=== PATIENT | male | born 1940 | race Caucasian/White ===

== ENCOUNTER 2017-05-09 19:41 | Inpatient (IN) | payer MEDICARE ==
[~2017-05-09] VITALS: Ht 185.4 cm; Wt 58.5 kg
[~2017-05-09 19:41] MED LIST: ASPIRIN81 MG PO; IBUPROFEN600 MG PO; MINOCYCLINE HC100 M1 PO; PLAQUENIL200 MG PO; RAMIPRIL10 MG PO
[2017-05-09] MEDS ORDERED: ASPIRIN 81 MG CHEW TAB PO STA (20:14)
[2017-05-09] MEDS ORDERED: NITROGLYCERIN 2% OINT 1 GM PKT TOP STA (20:14)
[2017-05-09] MEDS ORDERED: ASPIRIN 81 MG CHEW TAB PO ONE (20:15)
[2017-05-09] MEDS ORDERED: ASPIRIN81 MG PO (20:18)
[2017-05-09] MEDS ORDERED: BYSTOLIC5 MG PO (20:18)
[2017-05-09 20:27] LABS: BASOPHILS # (AUTO) 0.1 (0.0-0.1); BASOPHILS % 0.5 % (0.0-1.0); EOSINOPHILS # (AUTO) 0.2 (0.0-0.4); EOSINOPHILS % 2.2 % (0.0-6.0); HEMATOCRIT 33.4 % (38.2-49.6); HEMOGLOBIN 10.7 g/dL (14.0-18.0); LYMPHOCYTES # (AUTO) 1.5 (1.0-3.2); LYMPHOCYTES % 16.8 % (18.0-39.1); MEAN CORPUSCULAR HEMOGLOBIN 28.4 pg (28-32); MEAN CORPUSCULAR VOLUME 88.6 fL (81-99); MONOCYTES # (AUTO) 0.7 (0.2-0.8); MONOCYTES % 7.2 % (4.4-11.3); NEUTROPHILS # (AUTO) 6.6 (2.1-6.9); NEUTROPHILS % 72.9 % (38.7-80.0); PLATELET COUNT 254 x10e3/uL (140-360); RED BLOOD COUNT 3.77 x10e6/uL (4.3-5.7)
[2017-05-09 20:33] LABS: BILIRUBIN,URINE 1+ (NEGATIVE); CLARITY,URINE SL CLOUDY (CLEAR); COLOR,URINE YELLOW (YELLOW); KETONES,URINE NEGATIVE (NEGATIVE); LEUKOCYTE ESTERASE ,URINE NEGATIVE (NEGATIVE); NITRITE,URINE NEGATIVE (NEGATIVE); PROTEIN,URINE DIPSTICK TRACE (NEGATIVE); URINE UROBILINOGEN 0.2 mg/dL (0.2 - 1)
[2017-05-09 20:36] LABS: INR 1.29; PROTHROMBIN TIME 15.1 seconds (11.9-14.5)
[2017-05-09 20:37] LABS: PARTIAL THROMBOPLASTIN TIME 34.6 seconds (23.8-35.5)
[2017-05-09 20:43] LABS: ALBUMIN 3.7 g/dL (3.5-5.0); ALBUMIN/GLOBULIN RATIO 0.8 (0.8-2.0); ANION GAP 15.3 mmol/L (8-16); CALCIUM 9.3 mg/dL (8.4-10.2); CREATININE, SERUM 1.4 mg/dL (0.72-1.25); POTASSIUM 5.3 mmol/L (3.5-5.1)
[2017-05-09 20:46] LABS: BACTERIA,URINE FEW /HPF; EPITHELIAL CELLS,URINE RARE /LPF; MUCUS,URINE FEW (RARE)
[2017-05-09 20:50] LABS: CREATINE KINASE MB 2.8 ng/mL (0.00-5.00)
[2017-05-09] MEDS ORDERED: SODIUM CHLORIDE FLUSH 10 ML SYR INJ PRN (21:45)
--- NOTE | 2017-05-09 22:14 | Diagnostic Imaging Report ---
CHEST SINGLE (PORTABLE), 05/09/2017 8:14 PM Technique: CHEST SINGLE (PORTABLE) Comparison: None available. Clinical history: Chest pain Findings: See Impression Impression: 1. Mildly enlarged cardiac silhouette status post sternotomy. No edema. 2. Small right pleural effusion with associated atelectasis. Underlying infection not excluded in the proper clinical context. Consider follow-up upright PA and lateral. 3. Left costophrenic angle is excluded from view. Signed by: Dr Pema Castaneda MD on 05/09/2017 10:11 PM
--- OUTSIDE RECORDS SUMMARY | 2017-05-09 22:56 | XMS REPORT ---
Author [facility] Address Unknown Phone Unavailable Care Team Providers Care Quality Engineering Manager Name Role Phone FANI RAMSEY Unavailable Unavailable Problems This patient has no known problems. Allergies, Adverse Reactions, Alerts This patient has no known allergies or adverse reactions. Medications This patient has no known medications. Results Test Description Test Time Test Comments Text Results Atomic Results Result Comments CHEST SINGLE (PORTABLE) [place] [address] Patient Name: HUSAM MORENO JR MR #: [id number] : 1940 Age/Sex: 76/M Req #: [id number] Adm Physician: Ordered by: FANI RAMSEY MD Report #: [id number] Location: ER Room/Bed: Procedure: [id number] DX/CHEST SINGLE (PORTABLE) Exam Date: Exam Time: REPORT STATUS: Signed CHEST SINGLE (PORTABLE), 02/2018 8:14 PM Technique: CHEST SINGLE (PORTABLE) Comparison: None available. Clinical history: Chest pain Findings: See Impression Impression: 1. Mildly enlarged cardiac silhouette status post sternotomy. No edema. 2. Small right pleural effusion with associated atelectasis. Underlying infection not excluded in the proper clinical context. Consider follow-up upright PA and lateral. 3. Left costophrenic angle is excluded from view. Signed by: Dr Halina Castaneda MD on 05/09/2017 10:11 PM Dictated By: HALINA CASTANEDA MD 10 Transcribed By: KENAN on 05/09/172210 COPY TO: FANI RAMSEY MD
[2017-05-10] VITALS (8 sets, daily range): BP systolic 84–138; BP diastolic 54–68
[2017-05-10 07:26] LABS: CHOL/HDL RATIO 3.3 (3.9-4.7)
[2017-05-10 07:33] LABS: CREATINE KINASE MB 2.4 ng/mL (0.00-5.00)
[2017-05-10] MEDS: ENOXAPARIN SOD INJ 60 MG/0.6 ML SYR SC SCH (08:30)
[2017-05-10] MEDS ORDERED: FUROSEMIDE INJ 10 MG/ML 4 ML VIAL IV SCH (09:00)
[2017-05-10] MEDS ORDERED: ASPIRIN 325 MG TAB EC PO SCH (09:00)
[2017-05-10] MEDS ORDERED: ENOXAPARIN SODIUM INJ 100 MG/ML SYR SC SCH (09:00)
[2017-05-10 09:40] LABS: BASOPHILS # (AUTO) 0.1 (0.0-0.1); BASOPHILS % 0.8 % (0.0-1.0); EOSINOPHILS # (AUTO) 0.1 (0.0-0.4); EOSINOPHILS % 1.6 % (0.0-6.0); HEMATOCRIT 29.3 % (38.2-49.6); HEMOGLOBIN 9.3 g/dL (14.0-18.0); LYMPHOCYTES # (AUTO) 1.3 (1.0-3.2); LYMPHOCYTES % 20.5 % (18.0-39.1); MEAN CORPUSCULAR HGB CONC 31.7 g/dL (31-35); MEAN CORPUSCULAR VOLUME 88.3 fL (81-99); MONOCYTES # (AUTO) 0.5 (0.2-0.8); MONOCYTES % 8.3 % (4.4-11.3); NEUTROPHILS # (AUTO) 4.4 (2.1-6.9); NEUTROPHILS % 68.5 % (38.7-80.0); PLATELET COUNT 214 x10e3/uL (140-360); RED BLOOD COUNT 3.32 x10e6/uL (4.3-5.7); RED CELL DISTRIBUTION WIDTH 14.8 % (11.7-14.4)
[2017-05-10 09:47] LABS: ANION GAP 16.2 mmol/L (8-16); CALCIUM 8.5 mg/dL (8.4-10.2); CREATININE, SERUM 1.34 mg/dL (0.72-1.25); MAGNESIUM 1.6 MG/DL (1.3-2.1)
[2017-05-10 09:53] LABS: POTASSIUM 4.2 mmol/L (3.5-5.1)
--- NOTE | 2017-05-10 10:10 | History and Physical ---
PRIMARY CARE PHYSICIAN: Dr. Deonte Wright CHIEF COMPLAINT: Shortness of breath. HISTORY OF PRESENT ILLNESS: This is a 76-year-old man with a history of coronary artery disease with a history of coronary artery bypass graft, now developing shortness of breath. The patient continues to smoke 1-1/2 packs of cigarettes per day. The patient presented to the emergency room. Chest x-ray done in the emergency room showed small right pleural effusion with some atelectasis. The patient was also found to be hypokalemic. Potassium was 5.3. BNP was 2617. The patient was admitted for further evaluation and management. PAST MEDICAL HISTORY: Coronary artery disease, status post coronary artery bypass graft in 2007, peripheral vascular disease, status post right BKA in 2013, cigarette abuse. PAST SURGICAL HISTORY: Right below knee amputation and coronary artery bypass grafting. ALLERGIES: PER ELECTRONIC MEDICAL RECORDS. FAMILY HISTORY/SOCIAL HISTORY: The patient is and has 2 children. No alcohol or illicits. Continues to smoke 1-1/2 packs of cigarettes per day. MEDICATIONS: Per electronic medical record. REVIEW OF SYSTEMS: Denies any dizziness or chest pain. PHYSICAL EXAMINATION VITAL SIGNS: Reviewed. GENERAL: A tired-appearing man resting in bed, sitting at the edge of the bed leaning forward. HEENT: Anicteric. CARDIOVASCULAR: Normal S1 and S2. LUNGS: Reduced breath sounds more at the base. He has fine crackles at the bases bilaterally. ABDOMEN: Soft, nontender and nondistended. EXTREMITIES: No edema. He has a right BKA stump that is well-healed. SKIN: Dry. PSYCHIATRIC: Normal affect. LABS: Reviewed. MEDICATIONS: Reviewed. ASSESSMENT AND PLAN: A 76-year-old man with: 1. Right pleural effusion: The patient's BNP is markedly elevated above 2000. Will diurese the patient with Lasix 40 mg intravenously daily. Follow I's and O's. 2. Cigarette abuse: Confirm suspicion. Not interested in patch. Definitely contributing to his symptoms at this time. The patient states that he does not have a history of chronic obstructive pulmonary disease. 3. Coronary artery disease with history of coronary artery bypass grafting: Will resume aspirin, beta sj and GUILLERMINA inhibitor. 4. Normocytic anemia, mild to moderate: Will follow. 5. Hyperkalemia: Potassium was 5.3. Will hold GUILLERMINA inhibitor. Will reassess potassium level now. 6. Acute kidney injury: Will hold GUILLERMINA inhibitor and reassess renal function this morning. May need renal ultrasound. 7. Prophylaxis: Will use prophylaxis Pepcid while on Lovenox treatment dose. 8. Disposition: Obtain a 2-D echocardiogram. Cardiology consultation. Diurese the patient. Monitor I's and O's. Monitor renal function and check labs now. Job#: [id number] ARTHUR
--- NOTE | 2017-05-10 14:09 | Consultation ---
DATE OF CONSULTATION: May 10, 2017 CARDIOLOGY CONSULTATION REQUESTING PHYSICIAN: Dr. Jose Rodriges. REASON FOR CONSULTATION: Congestive heart failure. HISTORY OF PRESENT ILLNESS: This is a 76-year-old man with coronary artery disease status post 3-vessel bypass in 2007, hypertension, peripheral arterial disease and chronic kidney disease, who presented with complaints of shortness of breath. The patient reports he has noted increasing shortness of breath with ambulation for the last 3 to 4 weeks. In addition, 2 weeks ago he noticed he began to have worsening shortness of breath when he lay down at night such that he now is using 2 pillows to sleep and has woken up having to sit up because of shortness of breath. He denied any edema, chest pain or palpitations. Due to these symptoms, he presented to the ER for further evaluation, where he was found to have a small right pleural effusion and elevated BNP at 2600. He was admitted for further management. REVIEW OF SYSTEMS: Negative except as per HPI. PAST MEDICAL HISTORY 1. Coronary artery disease status post 3-vessel CABG in 2007. 2. Peripheral vascular disease status post right BKA. 3. Hypertension. 4. Chronic kidney disease. PAST SURGICAL HISTORY 1. CABG. 2. Right BKA. ALLERGIES: NO KNOWN DRUG ALLERGIES. MEDICATIONS: Please see EMR. SOCIAL HISTORY: He smokes a pack and a half a day for the last 50 years. He denies any alcohol or drugs. FAMILY HISTORY: Noncontributory. PHYSICAL EXAMINATION VITAL SIGNS: Temperature 97.2 degrees, pulse 58, respiratory rate 18, blood pressure 133/62, oxygen saturation 100% on 3 liters nasal cannula. GENERAL: A thin man, well developed, no acute distress. HEENT: Normocephalic, atraumatic. Pupils equal, no scleral icterus. NECK: Supple. No thyromegaly or cervical lymphadenopathy, no carotid bruits. LUNGS: Clear to auscultation bilaterally. No wheezes or crackles. CARDIOVASCULAR: Normal rate, regular rhythm. No murmur. Normal S1 and S2. ABDOMEN: Soft, nontender. EXTREMITIES: Status post right BKA, 2+ pitting edema on the left. NEURO: Nonfocal exam. CARDIAC MEDICATIONS 1. Enoxaparin 60 mg subcutaneous daily. 2. Furosemide 40 mg IV daily. 3. Aspirin 81 mg p.o. daily. 4. Nebivolol 5 mg p.o. daily. LABS: Sodium 137, potassium 4.2, chloride 106, CO2 19, BUN 37, creatinine 1.34. Troponin 0.009. BNP 2618. Cholesterol 107, LDL 65, HDL 32, triglycerides 51. EKG: Sinus rhythm with occasional PVCs and PACs, right-whitlock axis, incomplete right bundle branch block. Cannot rule out anterior infarct, age undetermined. IMPRESSION 1. Enaux-xe-edezeqn systolic heart failure, coronary artery disease status post coronary artery bypass graft. 1. Peripheral vascular disease status post right below-knee amputation. 2. Tobacco abuse. 3. Hypertension. 4. Chronic kidney disease. RECOMMENDATIONS: Increase diuresis. Echo was being done at bedside. Will review the images once they are available. Patient will need ischemic evaluation once he is able to lie flat. We will need to change Nebivolol to carvedilol given his systolic heart failure. No GUILLERMINA or ARB at this time due to renal insufficiency. Will reassess if renal function remains stable. Thank you for this consult. We will continue to follow. Job#: [id number] LI
[2017-05-10 15:13] LABS: CREATINE KINASE MB 2.5 ng/mL (0.00-5.00)
[2017-05-10] MEDS: FUROSEMIDE INJ 10 MG/ML 4 ML VIAL IV SCH ×2 (17:40→21:29)
[2017-05-11] VITALS: BP 137/63
[2017-05-11 07:44] LABS: BASOPHILS % 0.5 % (0.0-1.0); EOSINOPHILS # (AUTO) 0.2 (0.0-0.4); EOSINOPHILS % 2.1 % (0.0-6.0); HEMATOCRIT 32.8 % (38.2-49.6); HEMOGLOBIN 10.5 g/dL (14.0-18.0); LYMPHOCYTES % 11.4 % (18.0-39.1); MEAN CORPUSCULAR VOLUME 87.5 fL (81-99); MONOCYTES # (AUTO) 0.7 (0.2-0.8); MONOCYTES % 7.6 % (4.4-11.3); NEUTROPHILS # (AUTO) 6.8 (2.1-6.9); NEUTROPHILS % 78.1 % (38.7-80.0); PLATELET COUNT 229 x10e3/uL (140-360); RED BLOOD COUNT 3.75 x10e6/uL (4.3-5.7); RED CELL DISTRIBUTION WIDTH 14.8 % (11.7-14.4)
[2017-05-11 08:08] LABS: ANION GAP 15.8 mmol/L (8-16); CALCIUM 8.6 mg/dL (8.4-10.2); CREATININE, SERUM 1.55 mg/dL (0.72-1.25); MAGNESIUM 1.7 MG/DL (1.3-2.1); POTASSIUM 3.8 mmol/L (3.5-5.1)
[2017-05-11 08:47] VITALS: BP 164/69
[2017-05-11] MEDS ORDERED: NEBIVOLOL 10 MG TAB PO SCH (09:00)
[2017-05-11] MEDS: FUROSEMIDE INJ 10 MG/ML 4 ML VIAL IV SCH ×3 (09:05→20:39)
[2017-05-11] MEDS: ASPIRIN 81 MG CHEW TAB PO SCH (09:05)
[2017-05-11] MEDS: ENOXAPARIN SOD INJ 60 MG/0.6 ML SYR SC SCH (09:05)
[2017-05-11 09:31] VITALS: BP 164/69
[2017-05-11 12:33] VITALS: BP 132/71
[2017-05-11 16:29] VITALS: BP 142/72
[2017-05-11 20:00] VITALS: BP 134/64
[2017-05-11] MEDS: HYDROXYCHLOROQUINE SULFATE PO SCH (20:39)
[2017-05-12] VITALS (8 sets, daily range): BP systolic 116–134; BP diastolic 58–65
[2017-05-12 07:00] LABS: BASOPHILS % 0.4 % (0.0-1.0); EOSINOPHILS # (AUTO) 0.1 (0.0-0.4); EOSINOPHILS % 1.1 % (0.0-6.0); HEMATOCRIT 34.2 % (38.2-49.6); LYMPHOCYTES # (AUTO) 0.9 (1.0-3.2); LYMPHOCYTES % 7.8 % (18.0-39.1); MEAN CORPUSCULAR HEMOGLOBIN 27.9 pg (28-32); MEAN CORPUSCULAR HGB CONC 32.2 g/dL (31-35); MEAN CORPUSCULAR VOLUME 86.8 fL (81-99); MONOCYTES # (AUTO) 0.9 (0.2-0.8); MONOCYTES % 8.3 % (4.4-11.3); NEUTROPHILS # (AUTO) 9.3 (2.1-6.9); PLATELET COUNT 242 x10e3/uL (140-360); RED BLOOD COUNT 3.94 x10e6/uL (4.3-5.7); RED CELL DISTRIBUTION WIDTH 14.5 % (11.7-14.4)
[2017-05-12 07:26] LABS: CALCIUM 8.9 mg/dL (8.4-10.2); CREATININE, SERUM 1.41 mg/dL (0.72-1.25); MAGNESIUM 1.9 MG/DL (1.3-2.1)
[2017-05-12 07:45] LABS: FERRITIN 48.78 ng/mL (21.81-274.66)
[2017-05-12 07:56] LABS: FOLATE 14.4 ng/mL (7.0-15.4)
[2017-05-12] MEDS: POTASSIUM CHLORIDE 20 MEQ TAB CR PO SCH (08:38)
[2017-05-12] MEDS: FUROSEMIDE INJ 10 MG/ML 4 ML VIAL IV SCH ×3 (08:38→21:01)
[2017-05-12] MEDS: ENOXAPARIN SOD INJ 60 MG/0.6 ML SYR SC SCH (08:45)
[2017-05-12] MEDS: ASPIRIN 81 MG CHEW TAB PO SCH (08:45)
[2017-05-12] MEDS ORDERED: POTASSIUM CHLORIDE 20 MEQ TAB CR PO SCH (09:00)
[2017-05-12] MEDS ORDERED: LIDOCAINE HCL 2% LOCAL 20 ML VIAL PRN (11:42)
[2017-05-12] MEDS ORDERED: HEPARIN SOD/SOD CHLORIDE 2,000 ML PRN (11:42)
[2017-05-12] MEDS ORDERED: IOPAMIDOL 370 MG/ML 200 ML INFUS..BTL INJ PRN (11:43)
[2017-05-12] MEDS ORDERED: SODIUM CHLORIDE 0.9% 1000ML 1,000 ML PRN (11:59)
[2017-05-12] MEDS ORDERED: MIDAZOLAM HCL 2 MG/2 ML VIAL PRN (11:59)
[2017-05-12] MEDS ORDERED: FENTANYL CITRATE/PF 100MCG/2 ML INJ PRN (11:59)
[2017-05-12] MEDS: HYDROXYCHLOROQUINE SULFATE PO SCH (21:01)
[2017-05-13] VITALS (9 sets, daily range): BP systolic 12–144; BP diastolic 59–67
[2017-05-13 07:18] LABS: BASOPHILS % 0.4 % (0.0-1.0); EOSINOPHILS # (AUTO) 0.1 (0.0-0.4); EOSINOPHILS % 1.1 % (0.0-6.0); HEMOGLOBIN 11.7 g/dL (14.0-18.0); LYMPHOCYTES # (AUTO) 0.9 (1.0-3.2); LYMPHOCYTES % 8.6 % (18.0-39.1); MEAN CORPUSCULAR HEMOGLOBIN 27.7 pg (28-32); MEAN CORPUSCULAR HGB CONC 31.6 g/dL (31-35); MEAN CORPUSCULAR VOLUME 87.5 fL (81-99); MONOCYTES % 8.7 % (4.4-11.3); NEUTROPHILS # (AUTO) 8.8 (2.1-6.9); PLATELET COUNT 265 x10e3/uL (140-360); RED BLOOD COUNT 4.23 x10e6/uL (4.3-5.7); RED CELL DISTRIBUTION WIDTH 14.7 % (11.7-14.4)
[2017-05-13 07:34] LABS: CALCIUM 9.2 mg/dL (8.4-10.2); CREATININE, SERUM 1.55 mg/dL (0.72-1.25); MAGNESIUM 2.2 MG/DL (1.3-2.1)
[2017-05-13] MEDS ORDERED: SODIUM CHLORIDE 0.9% 1000ML 1,000 ML IV SCH (08:00)
[2017-05-13] MEDS: ASPIRIN 81 MG CHEW TAB PO SCH (09:00)
[2017-05-13] MEDS ORDERED: VANCOMYCIN 1GM/NS 250 ML 250 ML IV PRN (09:00)
[2017-05-13] MEDS: ENOXAPARIN SOD INJ 60 MG/0.6 ML SYR SC SCH (11:00)
[2017-05-13] MEDS: POTASSIUM CHLORIDE 20 MEQ TAB CR PO SCH (11:00)
[2017-05-13] MEDS: FUROSEMIDE INJ 10 MG/ML 4 ML VIAL IV SCH ×3 (11:00→21:15)
--- NOTE | 2017-05-13 14:05 | Progress Note ---
DATE: May 13, 2017 CARDIOLOGY PROGRESS NOTE SUBJECTIVE: Patient denies chest pain or shortness of breath. He is waiting for ICD. OBJECTIVE VITAL SIGNS: Temperature 97.3 degrees, pulse 60, respiratory rate 17, blood pressure 143/67, oxygen saturation 100% on 2 liters nasal cannula. GENERAL: Awake, alert, cachectic. No acute distress. HEENT: Normocephalic, atraumatic. LUNGS: Clear to auscultation bilaterally. No wheezes or crackles. CARDIOVASCULAR: Normal rate, regular rhythm. No murmur. Normal S1 and S2. ABDOMEN: Soft, nontender. EXTREMITIES: Status post right BKA. No edema on the left. CARDIAC MEDICATIONS 1. Furosemide 40 mg IV t.i.d. 2. Enoxaparin 60 mg subcutaneous daily. 3. Aspirin 81 mg p.o. daily. LABS: WBC is 10.89, hemoglobin 11.7, hematocrit 37, platelets 265. Sodium 137, potassium 4, chloride 99, CO2 27, BUN 48, creatinine 1.55. BNP 1059. IMPRESSION 1. Ztiek-cg-truwpox systolic heart failure. 2. Coronary artery disease status post coronary artery bypass graft with 100% chronic total occlusion of the left anterior descending and right coronary artery, patent left internal mammary artery to left anterior descending, patent saphenous vein graft to diagonal 1, and patent saphenous vein graft to right coronary artery with 80% heavily calcified left main and left circumflex. 3. Peripheral vascular disease status post right below-knee amputation. 4. Tobacco abuse. 5. Hypertension. 6. Chronic kidney disease. RECOMMENDATIONS: Continue diuresis. Patient is scheduled for ICD this afternoon with Dr. Lennon. Continue current cardiac medications. Thank you for this consult. We will continue to follow. Job#: [id number] EV
[2017-05-13] MEDS ORDERED: BACITRACIN 50,000 UNIT VIAL PRN (16:40)
[2017-05-13] MEDS ORDERED: VANCOMYCIN 1GM/NS 250 ML 250 ML PRN (17:02)
[2017-05-13] MEDS ORDERED: MORPHINE SULFATE 2 MG/ML SYR IV PRN (19:45)
[2017-05-13] MEDS: MINOCYCLINE HCL 50 MG CAP PO SCH (21:15)
[2017-05-13] MEDS: HYDROXYCHLOROQUINE SULFATE PO SCH (21:15)
[2017-05-14] VITALS (8 sets, daily range): BP systolic 139–159; BP diastolic 63–88
[2017-05-14] MEDS: MORPHINE SULFATE INJ 4 MG/ML INJ IV PRN ×2 (03:01→06:22)
[2017-05-14] MEDS ORDERED: MORPHINE SULFATE 2 MG/ML SYR ONE (06:16)
--- NOTE | 2017-05-14 06:47 | Diagnostic Imaging Report ---
CHEST SINGLE (PORTABLE), 05/14/2017 6:00 AM Technique: CHEST SINGLE (PORTABLE) Comparison: 05.09.17 Clinical history: \S\aicd placement portable upright \[id number] \S\0600 \S\Y Findings: See Impression Impression: 1. Lines/Tubes: Placement of dual-lead left chest wall AICD with leads projecting over the right atrium and ventricle. Median sternotomy wires intact. 2. Stable mild cardiomegaly. 3. Hyperinflation without consolidation or edema. Decreased small right effusion. 4. No pneumothorax. Signed by: Dr Pema Castaneda MD on 05/14/2017 6:43 AM
[2017-05-14 07:19] LABS: BASOPHILS # (AUTO) 0.1 (0.0-0.1); BASOPHILS % 0.4 % (0.0-1.0); EOSINOPHILS # (AUTO) 0.3 (0.0-0.4); EOSINOPHILS % 1.8 % (0.0-6.0); HEMOGLOBIN 11.4 g/dL (14.0-18.0); LYMPHOCYTES # (AUTO) 0.9 (1.0-3.2); LYMPHOCYTES % 6.4 % (18.0-39.1); MEAN CORPUSCULAR HEMOGLOBIN 27.7 pg (28-32); MEAN CORPUSCULAR HGB CONC 32.6 g/dL (31-35); MONOCYTES # (AUTO) 1.1 (0.2-0.8); MONOCYTES % 8.1 % (4.4-11.3); NEUTROPHILS # (AUTO) 11.5 (2.1-6.9); PLATELET COUNT 235 x10e3/uL (140-360); RED BLOOD COUNT 4.12 x10e6/uL (4.3-5.7); RED CELL DISTRIBUTION WIDTH 14.4 % (11.7-14.4)
[2017-05-14 07:59] LABS: CALCIUM 8.6 mg/dL (8.4-10.2); CREATININE, SERUM 1.54 mg/dL (0.72-1.25)
[2017-05-14] MEDS ORDERED: DIPHENHYDRAMINE HCL INJ 50 MG/ML VIAL IV PRN (08:30)
[2017-05-14] MEDS: ASPIRIN 81 MG CHEW TAB PO SCH (09:00)
[2017-05-14] MEDS: ENOXAPARIN SOD INJ 60 MG/0.6 ML SYR SC SCH (09:00)
[2017-05-14] MEDS: FUROSEMIDE INJ 10 MG/ML 4 ML VIAL IV SCH ×3 (09:00→19:45)
[2017-05-14] MEDS: MINOCYCLINE HCL 50 MG CAP PO SCH ×2 (09:00→19:45)
[2017-05-14] MEDS ORDERED: LIDOCAINE 1% W/EPINEPHRINE 20 ML VIAL PRN (11:48)
[2017-05-14] MEDS ORDERED: SODIUM BICARBONATE 8.4% SYRING 50 ML PRN (11:49)
[2017-05-14] MEDS ORDERED: SODIUM CHLORIDE 0.9% 500ML 500 ML PRN (11:49)
--- NOTE | 2017-05-14 12:11 | Progress Note ---
DATE: CARDIOLOGY PROGRESS NOTE SUBJECTIVE: Patient is without any complaints. He is resting, stating that he is waiting for his procedure this morning. OBJECTIVE VITAL SIGNS: Temperature 97.3, pulse 71, respiratory rate 16, blood pressure 139/76, oxygen saturation 99% on 2 liters nasal cannula. CARDIOVASCULAR MEDICATIONS 1. Furosemide 40 mg IV t.i.d. 2. Potassium chloride 20 mEq p.o. daily. 3. Aspirin 81 p.o. daily. LABS: WBC 13.84, hemoglobin 11.4, hematocrit 35, platelets 235. Sodium 135, potassium 4.0, BUN 51, creatinine 1.54, GFR 44, calcium 8.6. BNP 671.5. Chest x-ray with placement of the dual-lead left chest wall AICD with leads projecting over the right atrium and ventricle. Median sternotomy wires intact. PHYSICAL EXAMINATION GENERAL: Alert and oriented x3. Resting comfortably in bed. Does not appear to be in acute distress. Son at the bedside. LUNGS: Clear to auscultation throughout. No wheezing or rhonchi or crackles. CARDIOVASCULAR: Regular rate and rhythm. S3/S4 noted. Systolic murmur present. ABDOMEN: Flat, soft, nontender. LOWER EXTREMITIES: Status post right BKA. Left lower extremity with no edema, decreased pedal pulses. IMPRESSION 1. Lixnr-fe-nvdkwmc systolic heart failure. Status post implantable cardioverter-defibrillator placement yesterday. Now requiring reposition of his leads. Plan for surgical procedure this afternoon. 2. Coronary artery disease, status post coronary artery bypass with 100% chronic total occlusion of the left anterior descending and right coronary artery and patent left internal mammary artery to left anterior descending, patent saphenous vein graft to diagonal 1 and patent saphenous vein graft to the right coronary artery with 80% heavily calcified left main and left circumflex. 3. Peripheral vascular disease, status post right kfnzc-loe-ttun amputation. 4. Tobacco abuse. 5. Hypertension. 6. Chronic kidney disease. RECOMMENDATION: Proceed with the surgical procedure with Dr. Lennon this afternoon. Continue with the above list of cardiac medication. Continue to monitor on telemetry. Will continue to follow closely. Dictated by: Jennyfer Perez NP Job#: [id number] EV
[2017-05-14] MEDS: POTASSIUM CHLORIDE 20 MEQ TAB CR PO SCH (16:50)
[2017-05-14] MEDS: TRAMADOL HCL 50 MG TAB PO PRN (19:45)
[2017-05-14] MEDS: HYDROXYCHLOROQUINE SULFATE PO SCH (19:45)
[2017-05-15] VITALS: BP 146/70
[2017-05-15 04:00] VITALS: BP 141/62
--- NOTE | 2017-05-15 06:38 | Diagnostic Imaging Report ---
CHEST SINGLE (PORTABLE), 05/15/2017 6:00 AM Technique: CHEST SINGLE (PORTABLE) Comparison: Previous day Clinical history: Lead placement Findings: See Impression Impression: 1. Lines/Tubes: Stable dual-lead left chest wall AICD with leads projecting over the right atrium and ventricle. Median sternotomy wires intact. 2. Stable mild cardiomegaly. 3. Hyperinflation without consolidation or edema. Stable small right effusion. 4. No pneumothorax. Signed by: Dr Pema Castaneda MD on 05/15/2017 6:34 AM
[2017-05-15 07:42] LABS: BASOPHILS % 0.4 % (0.0-1.0); EOSINOPHILS # (AUTO) 0.4 (0.0-0.4); EOSINOPHILS % 3.8 % (0.0-6.0); HEMATOCRIT 31.7 % (38.2-49.6); HEMOGLOBIN 10.3 g/dL (14.0-18.0); LYMPHOCYTES # (AUTO) 0.9 (1.0-3.2); LYMPHOCYTES % 8.6 % (18.0-39.1); MEAN CORPUSCULAR HEMOGLOBIN 27.9 pg (28-32); MEAN CORPUSCULAR HGB CONC 32.5 g/dL (31-35); MEAN CORPUSCULAR VOLUME 85.9 fL (81-99); MONOCYTES % 9.1 % (4.4-11.3); NEUTROPHILS # (AUTO) 8.3 (2.1-6.9); NEUTROPHILS % 77.9 % (38.7-80.0); PLATELET COUNT 186 x10e3/uL (140-360); RED BLOOD COUNT 3.69 x10e6/uL (4.3-5.7); RED CELL DISTRIBUTION WIDTH 14.3 % (11.7-14.4)
[2017-05-15 07:59] VITALS: BP 121/88
[2017-05-15 08:03] LABS: ANION GAP 11.6 mmol/L (8-16); BLOOD UREA NITROGEN 34 mg/dL (7-26); BUN/CREATININE RATIO 32 (6-25); CALCIUM 8.5 mg/dL (8.4-10.2); CARBON DIOXIDE 26 mmol/L (22-29); CHLORIDE 98 mmol/L (98-107); CREATININE, SERUM 1.07 mg/dL (0.72-1.25); EST GLOMERULAR FILTRATION RATE > 60 ML/MIN (60-); GLUCOSE 92 mg/dL (74-118); POTASSIUM 3.6 mmol/L (3.5-5.1); SODIUM 132 mmol/L (136-145)
[2017-05-15] MEDS: MINOCYCLINE HCL 50 MG CAP PO SCH (09:00)
[2017-05-15] MEDS: POTASSIUM CHLORIDE 20 MEQ TAB CR PO SCH (09:00)
[2017-05-15] MEDS: FUROSEMIDE INJ 10 MG/ML 4 ML VIAL IV SCH ×2 (09:00→16:07)
[2017-05-15] MEDS ORDERED: METOPROLOL SUCCINATE 25 MG TAB XL PO SCH (09:00)
[2017-05-15] MEDS: ASPIRIN 81 MG CHEW TAB PO SCH (09:00)
[2017-05-15] MEDS ORDERED: RAMIPRIL 5 MG CAP PO SCH (09:00)
[2017-05-15] MEDS ORDERED: ASPIRIN 81 MG ENTERIC COATED PO SCH (09:00)
[2017-05-15] MEDS: ENOXAPARIN SOD INJ 60 MG/0.6 ML SYR SC SCH (09:00)
--- NOTE | 2017-05-15 09:48 | Progress Note ---
DATE: May 15, 2017 CARDIOLOGY PROGRESS NOTE: SUBJECTIVE: Mr. Louis feels well. He underwent revision of his right ventricular lead in his AICD. OBJECTIVE VITAL SIGNS: Afebrile. Heart rate 60. Blood pressure 121/88. CARDIOVASCULAR: Regular rhythm. S3 gallop. LUNGS: Clear to auscultation bilaterally. ABDOMEN: Is emaciated. LAB: Hemoglobin is 10.3. Serum creatinine is normal. TELEMETRY: Shows sinus rhythm. ASSESSMENT: Acute on chronic systolic heart failure status post automatic implantable cardioverter-defibrillator placement. PLAN: Echocardiogram to exclude microperforation and pericardial effusion. If this is normal, he may be discharged. Home medications have been reinitiated. I will follow him up in the office in [address] Rodriges for this consultation. Job#: [id number] EV
[2017-05-15] MEDS ORDERED: SODIUM CHLORIDE 0.9% 500ML 500 ML IV ONE (10:45)
[2017-05-15] MEDS ORDERED: BISACODYL 5 MG TAB EC PO ONE (10:45)
[2017-05-15] MEDS ORDERED: SODIUM CHLORIDE 1 GM TAB PO NR (11:30)
[2017-05-15 12:03] VITALS: BP 143/61
[2017-05-15] MEDS: TRAMADOL HCL 50 MG TAB PO PRN (15:47)
[2017-05-15 16:21] VITALS: BP 104/52
[2017-05-15] MEDS ORDERED: ATORVASTATIN 20 MG TAB PO SCH (21:00)
[2017-05-15] MEDS ORDERED: ATORVASTATIN 40 MG TAB PO SCH (21:00)
[2017-05-16] MEDS ORDERED: ASPIRIN 81 MG ENTERIC COATED PO SCH (09:00)
--- NOTE | 2017-05-16 18:36 | Discharge Summary ---
ADMISSION DIAGNOSES 1. Right pleural effusion. 2. Cigarette abuse. 3. Coronary artery disease with bypass. 4. Anemia. 5. Hyperkalemia. 6. Acute kidney injury. DISCHARGE DIAGNOSES 1. Right pleural effusion. 2. Cigarette abuse. 3. Coronary artery disease with bypass. 4. Anemia. 5. Hyperkalemia. 6. Acute kidney injury. 7. Hyponatremia. HISTORY: The patient has a history of CAD, status post bypass in 2007, PVB, status post right BKA in 2012 and cigarette abuse. HOSPITAL COURSE: A 76-year-old male who presented with shortness of breath. He continues to smoke about 1 to 1-1/2 packs a day. Chest x-ray in the ER showed pleural effusion with some atelectasis and also the patient was found to be hyperkalemic. BNP was 2617. Cardiology was consulted. The patient was diuresed with Lasix IV, strict I\T\Os and BNP was monitored. Echo was ordered per cardiology and GUILLERMINA inhibitor and ARBS were held due to renal insufficiency. Cardiology changed Bystolic to Coreg. Per cardiology, the patient needed an ICD placed, which was done and chest x-ray and interrogation done the following day. Upon interrogation, it was found that one of the leads was not working correctly, so the patient had to go back and have it corrected. The following day an echo was done to rule out microperforation and pericardial effusion. The patient is stable and okay to discharge home per cardiology. Home meds per cardiology. He will follow up in one week with cardiology. Vital signs stable. The patient is afebrile. Will discharge home with family. Follow up with primary care physician in 1-2 weeks and cardio in 1 week. Dictated by: Anahi Kowalski NP CIELO KARIMI MD Job#: [id number]
--- NOTE | 2017-05-30 10:41 | Operative Report ---
DATE OF PROCEDURE: May 13, 2017 PREPROCEDURAL DIAGNOSES 1. Ischemic cardiomyopathy, status post previous myocardial infarction. Ejection fraction of 30% to 35%. 2. Sosog-ct-rfzhltv systolic and diastolic congestive heart failure, [place] Heart Association functional class III. 3. Sinus bradycardia with sinus pauses. POSTPROCEDURAL DIAGNOSES 1. Ischemic cardiomyopathy, status post previous myocardial infarction. Ejection fraction of 30% to 35%. 2. Yxmfp-ws-nfbyhxu systolic and diastolic congestive heart failure, [place] Heart Association functional class III. 3. Sinus bradycardia with sinus pauses. PROCEDURES PERFORMED 1. [employer] dual-chamber ICD implant in the left pectoral region. 2. Submuscular/retropectoral pocket formation. 3. Moderate sedation. PROCEDURE IN DETAIL: Mr. Louis was brought to the laborer cheesemaking here at [facility] in a fasting and nonsedated state. The left pectoral region was prepped and draped in a sterile manner. A pocket was formed in the left pectoral region with a combination of electrocautery and blunt and sharp dissection. A submuscular/retropectoral pocket was formed because of minimal subcutaneous tissue. Access to the axillary vein was made with the micropuncture needle and guidewire, and 2 guidewires were placed in this vein with the tips in the IVC. A 9-Indonesian sheath was then placed over the 1st guidewire through which a [employer] single coil ICD lead, model #0292, serial# [id number] was implanted in the right ventricular apex without complications. Adequate pacing and sensing parameters were observed. The sheath was peeled away. The lead was secured to the underlying fascia with #0 silk. A 6-Indonesian sheath was then placed over the remaining guidewire, through which an [employer] MRA pacing lead, model #7740, serial #[id number] was implanted in the right atrial appendage without complications. Adequate pacing and sensing parameters were observed. The sheath was peeled away and the lead secured to the underlying fascia with #0 silk. The pocket was then irrigated with antibiotic-containing normal saline with pulse irrigation and pulse lavage tool. The leads were connected to a [employer] ICD generator, model #D022, serial #[id number]. The generator and leads were then placed in the pocket and secured to the underlying fascia with #0 silk. The pocket was closed in 3 layers with 2-0 Vicryl and interrupted sutures for the muscular layer and then 3-0 Vicryl continuous sutures for the subcutaneous layers. The skin was closed with 4-0 Vicryl. Dermabond was placed for additional skin approximation. A pressure dressing placed for additional hemostasis. DEVICE DATA: Right ventricular lead has R waves of 14.8 millivolts with a threshold of 1 volt and a pulse width of 0.5 msec and a pacing impedance of 815 ohms. Shock impedance of 79 ohms. The right atrium has P waves of 7.2 millivolts with a threshold of 0.7 volts with a pulse width of 7.5 msec and a pacing impedance of 673 ohms. OF NOTE: 1. Moderate sedation was administered for the procedure. Total amount of sedation time was 30 minutes. Versed for the procedure was 1 mg and Fentanyl during the procedure was 50 mcg. 2. Pulse oximetry and hemodynamic monitoring were performed throughout the procedure. 3. The patient tolerated the procedure well. CONCLUSION 1. Successful implantation of a dual-chamber ICD in the left pectoral region. 2. No complications. 3. Moderate sedation administered. Job#: [id number]
--- NOTE | 2017-07-05 12:17 | Operative Report ---
DATE OF PROCEDURE: May 12, 2017 PROCEDURES PERFORMED: 1. Left heart catheterization, selective coronary angiography. 2. Right heart catheterization. COMPLICATIONS: None. RECOMMENDATIONS: Staged intervention of the left main and circumflex coronary arteries with atherectomy, high risk. Access was obtained in the right femoral artery. A 6-Kiswahili sheath was placed. Diagnostic coronary angiogram revealed heavily calcified 80% distal left main, complete occlusion of the proximal left anterior descending artery, 80% stenosis of the ramus intermedius, and 80% heavily calcified ostial circumflex stenosis. Right coronary artery was completely occluded. Saphenous vein bypass graft to diagonal artery was widely patent. Saphenous vein bypass graft to right coronary artery was widely patent. Left internal mammary artery bypass to left anterior descending artery was widely patent. The right atrial pressure was 5, RV pressure 37/4, pulmonary artery pressure mean of 23, pulmonary capillary wedge pressure of 22. Cardiac output 3.2 liters a minute, cardiac index 1.8 liters per minute per meter squared. Right groin sheath removed under manual pressure. Patient transferred to the floor in stable condition with recommendations as listed above. Job#: [id number] LI
--- NOTE | 2017-07-06 11:51 | Operative Report ---
DATE OF PROCEDURE: May 14, 2017 PREPROCEDURAL DIAGNOSES 1. Ischemic heart disease status post implantable cardioverter-defibrillator implant. 2. Right ventricular lead dislodgement with loss of capture and lower sensing. POSTPROCEDURAL DIAGNOSES 1. Ischemic heart disease status post implantable cardioverter-defibrillator implant. 2. Right ventricular lead dislodgement with loss of capture and lower sensing. PROCEDURE PERFORMED: Right ventricular lead repositioning. PROCEDURE IN DETAIL: Mr. Louis was brought to the slab grinder here at [facility] in a fasting and nonsedated state. The pocket was reopened along the previous incision line with a combination of electrocautery and blunt and sharp dissection. The generator was removed from the pocket and the lead freed up from the suture sleeve. The active fixation helix was withdrawn. The position of the lead looked unchanged from the previous fluoroscopic image. However, because of loss of capture and lower sensing, the lead was positioned to a new location slightly higher up on the septum. The active fixation helix was deployed, and adequate pacing and sensing parameters were noted. The patient tolerated the procedure well from this point. The pocket was irrigated with antibiotic-containing normal saline. The lead was reconnected to the original [employer] ICD generator. The generator was placed back into the pocket after the pocket was irrigated. The pocket was closed in 3 layers with 2-0 Vicryl for the deep and subcutaneous layers and 4-0 Vicryl for the skin. Dermabond was placed for additional skin approximation. Of note, moderate sedation was administered for the procedure. A total of 3 mg of Versed and 50 mcg of fentanyl were administered. Total moderate sedation time was 30 minutes. The patient tolerated the procedure well. CONCLUSIONS 1. Successful revision of right ventricular implantable cardioverter-defibrillator lead. 2. Moderate sedation administered. 3. No complications. Job#: [id number]
--- NOTE | 2017-07-06 11:51 | History and Physical ---
NO DICTATION. 12 seconds. Job#: [id number] GH
--- NOTE | 2017-09-12 09:53 | Consultation ---
DATE OF CONSULTATION: May 13, 2017 REASON FOR CONSULTATION: Evaluation of the patient for ICD. CHIEF COMPLAINT: Shortness of breath and dizziness. HISTORY OF PRESENT ILLNESS: Mr. Louis is a 77-year-old gentleman with past medical history for ischemic heart disease, status post coronary artery bypass, previous myocardial infarction, ejection fraction of 30% to 35%, was admitted to the hospital with acute congestive heart failure exacerbation. The patient is noted to have significant sinus bradycardia and sinus pauses post procedure. During the hospitalization, he is being evaluated here for the possibility of ICD therapy. PAST MEDICAL HISTORY: As listed above for ischemic heart disease, hypertension, dyslipidemia. SOCIAL HISTORY: Negative for alcohol or drug abuse. FAMILY HISTORY: Negative for cardiac arrhythmias or congestive heart failure. REVIEW OF SYSTEMS: A 14-point review of systems is within normal limits. LABORATORY STUDIES: Were reviewed. PHYSICAL EXAMINATION VITALS: Blood pressure is 130/70, heart rate 50, respiratory rate 20, O2 saturation is 100%. GENERAL: Mr. Louis is a frail appearing elderly male in no acute distress. HEENT: Mucous membranes are pink and moist. Anicteric, acyanotic. NECK: Without jugular venous distention or carotid bruits. No thyromegaly or masses noted. CARDIOVASCULAR: S1 and S2 audible. Regular rate and rhythm is noted. Soft systolic murmur heard in the right upper sternal border. LUNGS: Clear to auscultation bilaterally. GI: Abdomen is soft, nondistended and nontender. Bowel sounds heard in all 4 quadrants. NEUROLOGIC: He is alert and oriented times 3 with no focal neurologic deficits. EXTREMITIES: Without peripheral edema. Two plus pulses in all 4 extremities. IMPRESSION: Mr. Louis is a 77-year-old gentleman with ischemic cardiomyopathy with ejection fraction of 30% to 35% and right congestive heart failure and sinus bradycardia with sinus pauses noted on telemetry. He is admitted to the hospital with congestive heart failure exacerbation and dizziness. The patient meets primary prevention criteria for implantable cardioverter defibrillator therapy. He has been off medical management for greater than 3 months, and continues to have [facility] functional class III heart failure. I have discussed the options of dual chamber implantable cardioverter defibrillator therapy with him at great length. The risks, benefits and alternatives were discussed at great length. He has significant sinus bradycardia and would benefit from an atrial lead as well. He has minimal subcutaneous tissue, and therefore, likely some muscular/retroperitoneal implant being required. I have discussed this with him at great length. He understands and agrees to proceed. Will plan for dual implantable cardioverter defibrillator therapy later today. Job#: [id number] ARTHUR
[2017-11-21] MEDS ORDERED: POTASSIUM CHLO20 ME1 PO (15:03)
[2017-11-21] MEDS ORDERED: LEFLUNOMIDE20 MG PO (15:03)
[2017-11-21] MEDS ORDERED: METOPROLOL SUCC25 MG PO (15:03)
[2017-11-21] MEDS ORDERED: HYDROXYCHLOROQ100 GM PO (15:03)
[2017-11-21] MEDS ORDERED: CLOPIDOGREL75 MG PO (15:03)
[2017-11-21] MEDS ORDERED: ATORVASTATIN CA40 MG PO (15:03)
[2017-11-21] MEDS ORDERED: PREDNISONE10 MG PO (15:03)
[2017-11-21] MEDS ORDERED: ENTRESTO PO (15:03)
[2017-11-21] MEDS ORDERED: FUROSEMIDE40 MG PO (15:03)
== END 2017-05-15 17:51 | disposition home or self-care (01) | DRG 242 ==
LOC: ER 19:41 → ERHOLD 22:52 → MED/SURG 05-10 00:46
PROVIDERS: ADMIT Internal Medicine; ATTEND Internal Medicine
PROC: B2111ZZ Fluoroscopy of Multiple Coronary Arteries using Low Osmolar Contrast (ICD-10-PCS; principal; 2017-05-12)
PROC: B2181ZZ Fluoroscopy of Left Internal Mammary Bypass Graft using Low Osmolar Contrast (ICD-10-PCS; 2017-05-12)
PROC: B2131ZZ Fluoroscopy of Multiple Coronary Artery Bypass Grafts using Low Osmolar Contrast (ICD-10-PCS; 2017-05-12)
PROC: 4A023N8 Measurement of Cardiac Sampling and Pressure, Bilateral, Percutaneous Approach (ICD-10-PCS; 2017-05-12)
PROC: 0JH606Z Insertion of Pacemaker, Dual Chamber into Chest Subcutaneous Tissue and Fascia, Open Approach (ICD-10-PCS; 2017-05-13)
PROC: 02HK3JZ Insertion of Pacemaker Lead into Right Ventricle, Percutaneous Approach (ICD-10-PCS; 2017-05-13)
PROC: 02H63JZ Insertion of Pacemaker Lead into Right Atrium, Percutaneous Approach (ICD-10-PCS; 2017-05-13)
PROC: 02WA0MZ Revision of Cardiac Lead in Heart, Open Approach (ICD-10-PCS; 2017-05-14)
DX: I13.0 Hypertensive heart and chronic kidney disease with heart failure and stage 1 through stage 4 chronic kidney disease, or unspecified chronic kidney disease (principal); I50.23 Acute on chronic systolic (congestive) heart failure; N17.9 Acute kidney failure, unspecified; J90 Pleural effusion, not elsewhere classified; E87.5 Hyperkalemia; T82.9XXA Unspecified complication of cardiac and vascular prosthetic device, implant and graft, initial encounter; E87.1 Hypo-osmolality and hyponatremia; I50.1 Left ventricular failure, unspecified; D64.89 Other specified anemias; I73.9 Peripheral vascular disease, unspecified; I25.10 Atherosclerotic heart disease of native coronary artery without angina pectoris; Z95.1 Presence of aortocoronary bypass graft; Z89.511 Acquired absence of right leg below knee; F17.210 Nicotine dependence, cigarettes, uncomplicated; E87.6 Hypokalemia; N18.9 Chronic kidney disease, unspecified
CPT/HCPCS: 33215; 36140; 36415; 71045; 77001; 77002; 80048; 80053; 80061; 81001; 82270; 82550; 82553; 82607; 82728; 82746; 83540; 83735; 83880; 84466; 84484; 85025; 85610; 85730; 87086; 93005; 93306; 93307; 93451; 93459; 99284; C1721; C1766; C1769; C1777; C1898; J1650; J1940; J2001; J2250; J2270; J3370; J7030; J7040; Q9967

== ENCOUNTER → 2017-11-22 | Day surgery (SDC) | payer MEDICARE ==
[2017-11-21 15:01] LABS: BASOPHILS % 0.2 % (0.0-1.0); EOSINOPHILS % 0.3 % (0.0-6.0); HEMATOCRIT 34.5 % (38.2-49.6); HEMOGLOBIN 11.2 g/dL (14.0-18.0); LYMPHOCYTES # (AUTO) 0.5 (1.0-3.2); LYMPHOCYTES % 3.6 % (18.0-39.1); MEAN CORPUSCULAR HGB CONC 32.5 g/dL (31-35); MEAN CORPUSCULAR VOLUME 92.5 fL (81-99); MONOCYTES # (AUTO) 0.5 (0.2-0.8); MONOCYTES % 4.1 % (4.4-11.3); NEUTROPHILS # (AUTO) 11.4 (2.1-6.9); NEUTROPHILS % 91.4 % (38.7-80.0); PLATELET COUNT 139 x10e3/uL (140-360); RED BLOOD COUNT 3.73 x10e6/uL (4.3-5.7); RED CELL DISTRIBUTION WIDTH 18.2 % (11.7-14.4)
[2017-11-21 15:16] LABS: ALBUMIN 3.7 g/dL (3.5-5.0); ALBUMIN/GLOBULIN RATIO 1.1 (0.8-2.0); ANION GAP 14.9 mmol/L (8-16); CALCIUM 9.3 mg/dL (8.4-10.2); CREATININE, SERUM 1.66 mg/dL (0.72-1.25); POTASSIUM 4.9 mmol/L (3.5-5.1)
[2017-11-21 18:30] LABS: LYMPHOCYTES % (MANUAL) 3 % (19-48); MONOCYTES % (MANUAL) 7 % (3.4-9.0); NEUTROPHILS % (MANUAL) 90 % (40-74)
[2017-11-21 18:31] LABS: PLATELET ESTIMATE SLIGHTLY DECREASED; PLATELET MORPHOLOGY COMMENT NORMAL
[2017-11-21 18:33] LABS: RBC MORPHOLOGY COMMENT ABNORMAL
[2017-11-21 18:34] LABS: ANISOCYTOSIS SLIG; BURR CELLS SLIGHT; HYPOCHROMASIA SLIGHT; POIKILOCYTOSIS SLIG
[~2017-11-22] VITALS: Ht 182.9 cm; Wt 54.4 kg
[2017-11-22] VITALS (17 sets, daily range): BP systolic 125–175; BP diastolic 49–78
[~2017-11-22] MED LIST changes: +ALPRAZOLAM 0.5 MG TAB ONE; +ATORVASTATIN CA40 MG PO; +BYSTOLIC5 MG PO; +CLOPIDOGREL75 MG PO; +DIPHENHYDRAMINE HCL 25 MG CAP ONE; +ENTRESTO PO; +FENTANYL CITRATE/PF 100MCG/2 ML INJ ONE; +FUROSEMIDE40 MG PO; +HEPARIN SOD/SOD CHLORIDE 2,000 ML ONE; +HYDROXYCHLOROQ100 GM PO; +IOPAMIDOL 370 MG/ML 200 ML INFUS..BTL INJ ONE; +LEFLUNOMIDE20 MG PO; +LIDOCAINE HCL 2% LOCAL 20 ML VIAL ONE; +METOPROLOL SUCC25 MG PO; +MIDAZOLAM HCL 2 MG/2 ML VIAL ONE; +POTASSIUM CHLO20 ME1 PO; +PREDNISONE10 MG PO; +SODIUM CHLORIDE 0.9% 1000ML 1,000 ML ONE
--- NOTE | 2017-11-22 12:45 | Operative Report ---
DATE OF PROCEDURE: November 22, 2017 INDICATIONS: Carotid artery disease. PROCEDURE PERFORMED: Bilateral extracranial carotid angiograms. RECOMMENDATIONS: Emergent left carotid endarterectomy. Access was obtained in the right femoral artery. A 6-Sinhala sheath was placed. Bilateral extracranial carotid angiograms were performed. Right internal carotid artery less than 50% stenosis. Left internal carotid artery 99% subtotal stenosis with thrombus as well as ulcerated plaque. Right groin repaired using Vascade. Patient transferred to [facility] for urgent left carotid endarterectomy. Job#: [id number] DIEGO
== END | disposition other institution (70) ==
LOC: CATH LAB 08:10
PROVIDERS: ATTEND Internal Medicine Interventional Cardiology
DX: I65.23 Occlusion and stenosis of bilateral carotid arteries (principal); I25.10 Atherosclerotic heart disease of native coronary artery without angina pectoris; I11.0 Hypertensive heart disease with heart failure; I50.43 Acute on chronic combined systolic (congestive) and diastolic (congestive) heart failure; I70.219 Atherosclerosis of native arteries of extremities with intermittent claudication, unspecified extremity; F17.210 Nicotine dependence, cigarettes, uncomplicated; Z01.812 Encounter for preprocedural laboratory examination; Z79.82 Long term (current) use of aspirin; Z79.02 Long term (current) use of antithrombotics/antiplatelets
CPT/HCPCS: 36222; 36415; 80053; 85025; J2001; J2250; J7030; Q9967

== ENCOUNTER → 2018-11-22 | Outpatient (CLI) | payer OTHER ==
[~2018-11-22] MED LIST changes: -ALPRAZOLAM 0.5 MG TAB ONE; -DIPHENHYDRAMINE HCL 25 MG CAP ONE; -FENTANYL CITRATE/PF 100MCG/2 ML INJ ONE; -HEPARIN SOD/SOD CHLORIDE 2,000 ML ONE; -IOPAMIDOL 370 MG/ML 200 ML INFUS..BTL INJ ONE; -LIDOCAINE HCL 2% LOCAL 20 ML VIAL ONE; -MIDAZOLAM HCL 2 MG/2 ML VIAL ONE; -SODIUM CHLORIDE 0.9% 1000ML 1,000 ML ONE
--- NOTE | 2018-11-22 11:29 | Diagnostic Imaging Report ---
Exam: Right knee 3 views History: Evaluate for fracture. Comparison: None. Findings: No acute fracture. Below the knee amputation. Bone demineralization. Vascular stent. Impression: No acute osseous abnormality Signed by: Dr. Devon Maguire M.D. on 11/22/2018 11:25 AM
== END ==
LOC: RAD 10:20
PROVIDERS: ATTEND Surgery
DX: Z03.89 Encounter for observation for other suspected diseases and conditions ruled out (principal)

== ENCOUNTER → 2019-05-17 | Outpatient (CLI) | payer OTHER ==
[~2019-05-17] MED LIST changes: +IOPAMIDOL 370 MG/ML 200 ML INFUS..BTL INJ ONE; +SODIUM CHLORIDE 0.9% 100 ML ONE; +SODIUM CHLORIDE 0.9% 500ML 500 ML ONE
[2019-05-17 13:25] LABS: CREATININE, SERUM 1.54 mg/dL (0.72-1.25)
--- NOTE | 2019-05-17 15:53 | Diagnostic Imaging Report ---
Exam: Abdominal and pelvic CTA with bilateral lower extremity runoff Clinical history: Right leg pain Technique: Helical images of the abdomen, pelvis, and bilateral lower extremities were performed after IV contrast administration during arterial phase using the CTA protocol DOSE REDUCTION: The exams was performed according to the departmental dose-optimization program which includes automated exposure control, adjustment of the mA and/or kV according to patient size and/or use of iterative reconstruction technique. Findings: Mild focal opacities noted in the periphery of the right lung base which may represent atelectasis versus consolidation. There is no evidence of pleural effusion. The cardiac size is within normal limits. The liver, spleen, pancreas, gallbladder, adrenal glands, and right kidney are unremarkable. The left kidney is diffusely atrophic likely due to prior vascular insult. The small and large bowels are normal in caliber without evidence of obstruction. The bladder is unremarkable. The prostate and seminal vesicles appear enlarged. There is no evidence of lymphadenopathy or free fluid. Diffuse atherosclerotic calcification of the abdominal aorta and the iliac arteries are noted. Fusiform dilatation of the renal abdominal aorta is visualized measuring 2.8 x 3.2 in AP and transverse diameters. The patient is status post right renal artery stenting. High-grade stenosis is noted at the origin of the left renal artery. Calcified plaques are noted at the origin of the celiac and SMA with moderate stenosis. The origin of the ELOISA is not clearly identified which may represent occlusion. The bilateral iliac arteries are patent. The patient is status post right superficial femoral artery stenting and right femoral popliteal bypass. Both the [place] superficial femoral artery and a bypass graft are occluded. The patient is status post right below the knee amputation. The left common femoral artery is patent. The left superficial femoral artery is occluded proximally. The profunda femoris is patent. The popliteal artery is reconstituted proximally via collateral. At the level trifurcation, there is three-vessel runoff. The anterior tibial artery is occluded proximally. The peroneal artery is occluded at the mid calf. The posterior tibial artery is the main runoff artery to the foot. Impression: 1. Fusiform infrarenal aortic aneurysm measuring up to 3.2 cm in diameter. Follow-up imaging in 3 year is recommended. 2. The patient is status post right below the knee amputation. The right superficial femoral artery and the femoral popliteal pass graft are occluded. 3. Left superficial femoral artery occlusion. The popliteal artery is reconstituted via collateral. The right posterior tibial artery is the main runoff artery to the foot. 4. High-grade stenosis of the left renal artery with diffuse atrophic left kidney. 5. Status post right proximal renal artery stenting with postoperative changes. 6. The ELOISA was not visualized which may represent occlusion. 7. Moderate stenosis involving the origins of the celiac and SMA. Signed by: Dr. Jayden Palumbo MD on 05/17/2019 3:50 PM
== END ==
LOC: CT 12:44
PROVIDERS: ATTEND Surgery
DX: M79.604 Pain in right leg (principal)
CPT/HCPCS: 36415; 75635; 82565; 84520; 96360; J7040; J7050; Q9967

== ENCOUNTER → 2020-06-12 | Outpatient (CLI) | payer MEDICARE ==
[~2020-06-12] MED LIST changes: +FLOMAX0.4 MG PO; -IOPAMIDOL 370 MG/ML 200 ML INFUS..BTL INJ ONE; +LOSARTAN POTAS100 MG PO; +LOSARTAN POTASS25 MG PO; -SODIUM CHLORIDE 0.9% 100 ML ONE; -SODIUM CHLORIDE 0.9% 500ML 500 ML ONE
[2020-06-12 08:44] LABS: BASOPHILS # (AUTO) 0.1 (0.0-0.1); BASOPHILS % 0.8 % (0.0-1.0); EOSINOPHILS # (AUTO) 0.4 (0.0-0.4); EOSINOPHILS % 3.6 % (0.0-6.0); HEMATOCRIT 40.7 % (38.2-49.6); HEMOGLOBIN 13.3 g/dL (14.0-18.0); LYMPHOCYTES # (AUTO) 1.7 (1.0-3.2); LYMPHOCYTES % 17.9 % (18.0-39.1); MEAN CORPUSCULAR HEMOGLOBIN 31.6 pg (28-32); MEAN CORPUSCULAR HGB CONC 32.7 g/dL (31-35); MEAN CORPUSCULAR VOLUME 96.7 fL (81-99); MONOCYTES # (AUTO) 0.8 (0.2-0.8); MONOCYTES % 8.1 % (4.4-11.3); NEUTROPHILS # (AUTO) 6.6 (2.1-6.9); NEUTROPHILS % 68.8 % (38.7-80.0); PLATELET COUNT 163 x10e3/uL (140-360); RED BLOOD COUNT 4.21 x10e6/uL (4.3-5.7); RED CELL DISTRIBUTION WIDTH 13.2 % (11.7-14.4)
[2020-06-12 09:13] LABS: ANION GAP 13.9 mmol/L (8-16); CREATININE, SERUM 1.59 mg/dL (0.72-1.25); POTASSIUM 4.9 mmol/L (3.5-5.1)
== END ==
LOC: DX 16:19 → EDSTATUS 06-17 12:30
PROVIDERS: ATTEND Surgery
DX: Z01.812 Encounter for preprocedural laboratory examination (principal); Z01.818 Encounter for other preprocedural examination; Z20.822 Contact with and (suspected) exposure to COVID-19; K40.20 Bilateral inguinal hernia, without obstruction or gangrene, not specified as recurrent
CPT/HCPCS: 36415; 71046; 80053; 85025; 93005; U0002

== ENCOUNTER → 2020-07-23 | Day surgery (SDC) | payer MEDICARE ==
[2020-07-21 09:16] LABS: BASOPHILS # (AUTO) 0.1 (0.0-0.1); BASOPHILS % 0.6 % (0.0-1.0); EOSINOPHILS # (AUTO) 0.3 (0.0-0.4); EOSINOPHILS % 2.9 % (0.0-6.0); HEMATOCRIT 40.1 % (38.2-49.6); HEMOGLOBIN 13.4 g/dL (14.0-18.0); LYMPHOCYTES # (AUTO) 1.7 (1.0-3.2); LYMPHOCYTES % 17.6 % (18.0-39.1); MEAN CORPUSCULAR HEMOGLOBIN 31.9 pg (28-32); MEAN CORPUSCULAR HGB CONC 33.4 g/dL (31-35); MEAN CORPUSCULAR VOLUME 95.5 fL (81-99); MONOCYTES # (AUTO) 0.9 (0.2-0.8); MONOCYTES % 9.1 % (4.4-11.3); NEUTROPHILS # (AUTO) 6.7 (2.1-6.9); PLATELET COUNT 153 x10e3/uL (140-360); RED CELL DISTRIBUTION WIDTH 13.2 % (11.7-14.4)
[2020-07-21 09:39] LABS: ALBUMIN 3.9 g/dL (3.5-5.0); ALBUMIN/GLOBULIN RATIO 1.1 (0.8-2.0); ANION GAP 14.3 mmol/L (8-16); CALCIUM 8.8 mg/dL (8.4-10.2); CREATININE, SERUM 1.61 mg/dL (0.72-1.25); POTASSIUM 4.3 mmol/L (3.5-5.1)
[~2020-07-23] MED LIST changes: +BUPIVACAINE HCL 0.5% INJ 30 ML VIAL INJ ONE; +CEFAZOLIN SOD 1 GM/NS 50ML 100 ML IV ONE; +DESFLURANE 240 ML BTL INH ONE; +DEXAMETHASONE SOD PHOS INJ 4 MG/ML VIAL ONE; +GLYCOPYRROLATE INJ 0.2 MG/ML VIAL ONE; +LIDOCAINE HCL 2% LOCAL INJ 5 ML SDV VIAL INJ ONE; +NEOSTIGMINE 1 MG/ML 10ML VIAL ONE; +ONDANSETRON HCL INJ 2MG/ML 2ML 2 MG/ML VIAL ONE; +PROPOFOL IV EMULSION 10 MG/ML 20 ML VIAL ONE; +ROCURONIUM BROMIDE 10 MG/ML 5ML VIAL IV ONE
[2020-07-23 10:55] VITALS: BP 181/80
== END | disposition home or self-care (01) ==
LOC: OR 06:33
PROVIDERS: ATTEND Surgery
DX: K40.20 Bilateral inguinal hernia, without obstruction or gangrene, not specified as recurrent (principal); I25.708 Atherosclerosis of coronary artery bypass graft(s), unspecified, with other forms of angina pectoris; I71.4 Abdominal aortic aneurysm, without rupture; I13.0 Hypertensive heart and chronic kidney disease with heart failure and stage 1 through stage 4 chronic kidney disease, or unspecified chronic kidney disease; N18.9 Chronic kidney disease, unspecified; I50.43 Acute on chronic combined systolic (congestive) and diastolic (congestive) heart failure; J44.9 Chronic obstructive pulmonary disease, unspecified; M06.9 Rheumatoid arthritis, unspecified; M19.90 Unspecified osteoarthritis, unspecified site; Z01.812 Encounter for preprocedural laboratory examination; Z20.822 Contact with and (suspected) exposure to COVID-19; Z79.02 Long term (current) use of antithrombotics/antiplatelets; Z79.82 Long term (current) use of aspirin; Z95.1 Presence of aortocoronary bypass graft; Z95.810 Presence of automatic (implantable) cardiac defibrillator
CPT/HCPCS: 36415; 49650; 80053; 85025; C1781 ×2; J0690; J1100; J2001; J2405; J2704; J2710; U0002

== ENCOUNTER 2024-04-29 19:27 | Emergency (ER) | payer MEDICARE ==
[~2024-04-29] VITALS: Ht 182.9 cm; Wt 61.2 kg
[~2024-04-29 19:27] MED LIST changes: -BUPIVACAINE HCL 0.5% INJ 30 ML VIAL INJ ONE; -CEFAZOLIN SOD 1 GM/NS 50ML 100 ML IV ONE; -DESFLURANE 240 ML BTL INH ONE; -DEXAMETHASONE SOD PHOS INJ 4 MG/ML VIAL ONE; +FOLIC ACID0.4 MG PO; -GLYCOPYRROLATE INJ 0.2 MG/ML VIAL ONE; -LIDOCAINE HCL 2% LOCAL INJ 5 ML SDV VIAL INJ ONE; +METHOTREXA25 MG/1 M6; -NEOSTIGMINE 1 MG/ML 10ML VIAL ONE; +NEURONTIN100 MG PO; -ONDANSETRON HCL INJ 2MG/ML 2ML 2 MG/ML VIAL ONE; -PROPOFOL IV EMULSION 10 MG/ML 20 ML VIAL ONE; -ROCURONIUM BROMIDE 10 MG/ML 5ML VIAL IV ONE
[2024-04-29 19:32] VITALS: PULSE 75; RESP 15; TEMP 98.2
[2024-04-29] MEDS ORDERED: CEPHALEXIN500 MG PO (20:10)
[2024-04-29 21:15] VITALS: BP 162/76; PULSE 75; RESP 15; TEMP 98.2; O2SAT 98
== END 2024-04-29 20:12 | disposition home or self-care (01) ==
LOC: FSED 19:35
DX: R33.9 Retention of urine, unspecified (principal); I25.10 Atherosclerotic heart disease of native coronary artery without angina pectoris; I50.9 Heart failure, unspecified; J45.909 Unspecified asthma, uncomplicated; Z89.511 Acquired absence of right leg below knee; I25.2 Old myocardial infarction; Z95.810 Presence of automatic (implantable) cardiac defibrillator; Z95.1 Presence of aortocoronary bypass graft
CPT/HCPCS: 51700; 81003; 99283